=== PATIENT | female | born 1950 | race Caucasian/White ===

== ENCOUNTER → 2017-01-30 | Outpatient (CLI) | payer MEDICARE ==
[~2017-01-30] MED LIST: "\\\"PREP SPRAY\\\"-TIN4 OZ"; ASPIR 8181 MG PO; BENADRYL25 MG PO; CYMBALTA30 MG PO; DELTASONE20 MG PO; EPIPEN0.3 MG IM; MELATONIN5 MG PO; NASONEX NASAL S17 GM NOSE; NEURONTIN100 MG PO; NORCO 5-325 MG1 TAB PO; PERCOCET 7.5-31 EACH PO; PROVENTIL OR V6.7 GM INH; TENORMIN50 MG PO; VITAMIN D1000 UNIT PO
== END | disposition disaster alternative care site (69) ==
LOC: GBCOE 13:05
DX: Z08 Encounter for follow-up examination after completed treatment for malignant neoplasm (principal); Z85.3 Personal history of malignant neoplasm of breast; Z92.3 Personal history of irradiation; Z98.890 Other specified postprocedural states
CPT/HCPCS: G0206; G0279